=== PATIENT | male | born 1990 | race Asian ===

== ENCOUNTER → 2016-12-23 | Emergency (ER) | payer BC, OTHER ==
[2016-12-23 02:29] VITALS: BP 112/64; PULSE 82; TEMP 98.2; BMI 41.5
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
[2016-12-23 03:18] LABS: BASOPHIL 0.8 % (0-2.0); EOSINOPHIL 2.8 % (0-4.5); MCH 30.3 pg (25.7-33.7); MCHC 34.3 g/dl (32.0-35.9); MEAN CELL VOLUME 88.4 fl (80-96); NEUTROPHILS 71.8 % (42.8-82.8); PLATELET COUNT 292 K/MM3 (134-434); RDW 13.3 % (11.9-15.9); WHITE BLOOD COUNT 13.5 K/mm3 (4.0-10.0)
[2016-12-23 03:47] LABS: ALBUMIN 3.8 g/dl (3.4-5.0); ANION GAP 10 (8-16); BILIRUBIN,TOTAL 0.6 mg/dL (0.2-1.0); CALCIUM 8.9 mg/dL (8.5-10.1); CO2 27 mmol/L (21-32); CREATININE 0.7 mg/dL (0.7-1.3); GLUCOSE,RANDOM 97 mg/dL (74-106); SGOT/AST 12 U/L (15-37); SGPT/ALT 28 U/L (12-78); TOT PROT 7.7 g/dl (6.4-8.2)
[2016-12-23 03:48] LABS: ALK PHOS 98 U/L (45-117)
[2016-12-23 03:55] LABS: HIV 1 & 2 AB NEGATIVE; HIV 1 AGp24 NEGATIVE
[2016-12-25 14:17] LABS: HIV-2 AB-O.D. RATIO Negative (Neg:<1.00)
== END | disposition home or self-care (01) ==
LOC: JER 02:00
DX: Z77.21 Contact with and (suspected) exposure to potentially hazardous body fluids (principal); Y35.891A Legal intervention involving other specified means, law enforcement official injured, initial encounter; Y93.89 Activity, other specified; Y92.59 Other trade areas as the place of occurrence of the external cause; Y99.0 Civilian activity done for income or pay
CPT/HCPCS: 36415; 80053; 85025; 86702; 87389; 99281-25